=== PATIENT | female | born 1995 | race Caucasian/White ===

== ENCOUNTER → 2019-01-26 | Outpatient (CLI) | payer BC ==
[2019-01-26 17:53] LABS: BILIRUBIN,URINE NEGATIVE (NEGATIVE); CLARITY,URINE SLIGHTLY CLOUDY; COLOR,URINE YELLOW; GLUCOSE, URINE (UA) NEGATIVE (NEGATIVE); KETONES,URINE NEGATIVE (NEGATIVE); LEUKOCYTE ESTERASE ,URINE 1+ (NEGATIVE); NITRITE,URINE NEGATIVE (NEGATIVE); PH,URINE 7 (5-9); PROTEIN,URINE NEGATIVE (NEGATIVE); UROBILINOGEN,URINE NORMAL (NORMAL)
[2019-01-26 18:04] LABS: BACTERIA,URINE TRACE /HPF; WBC,URINE 0-2 /HPF
== END ==
LOC: LAB 17:33
PROVIDERS: ATTEND Obstetrics & Gynecology
DX: Z36.89 Encounter for other specified antenatal screening (principal)
CPT/HCPCS: 36415; 81000; 84144; 84702; 87088

== ENCOUNTER → 2019-05-12 | Outpatient (CLI) | payer BC ==
--- NOTE | 2019-05-12 17:10 | Diagnostic Imaging Report ---
INDICATION: . Clinical dates of 20 weeks and 0 days. TECHNIQUE: Multiple real-time grayscale images were obtained over the gravid uterus. COMPARISON: None. FINDINGS: There is a single live intrauterine gestation in cephalic presentation. The cervix measures 4 cm in length with no funneling or significant endocervical fluid seen. The placenta is posterior without evidence of previa seen. The stomach is seen. A four-chamber heart is seen. heart rate measures 139 BPM. The kidneys are seen. The bladder is seen. A three-vessel cord is seen. The cord insertion is seen. The cerebellum and posterior fossa are seen, and the cisterna magna appears normal. The ventricles are seen. The upper and lower spine is seen. The lips and nose are seen. The face is seen. Measurements are given below. The maternal adnexa are not seen. The amniotic fluid is subjectively normal. Biometrical measurements are as follows: Biparietal 4.69 cm, age 20 weeks 2 days. Head circumference 17.34 cm, age 20 weeks 0 days. Abdominal circumference 14.31 cm, age 19 weeks 5 days. Femur length 3.17 cm, age 19 weeks 6 days. Sonographic estimate age: 20 weeks 0 days. Sonographic estimated date of delivery: 09/29/2019. Estimated Weight: 312 gm (+/- 46 gm). LMP percentile: 33%. heart rate: 139 beats per minute. number: 1 of 1. IMPRESSION: 1. Single live intrauterine gestation measuring at 20 weeks and 0 days which is concordant with the clinical dates. 2. Anatomic survey as described above with no abnormality seen. Dictated by: Dictated on workstation # [id number]
== END ==
LOC: RAD 15:22
PROVIDERS: ATTEND Obstetrics & Gynecology
DX: Z34.92 Encounter for supervision of normal pregnancy, unspecified, second trimester (principal); Z3A.20 20 weeks gestation of pregnancy
CPT/HCPCS: 76805

== ENCOUNTER 2019-08-26 16:07 | Outpatient (CLI) | payer BC ==
[~2019-08-26] VITALS: Ht 157.5 cm; Wt 68.3 kg
--- NOTE | 2019-08-26 15:58 | NUR ---
CYNTHIA POLO presented to unit via ambulation, accompanied by mother, with c/o leaking fluid since 1129 today. Pt. weighed, gowned, voided, and to bed. EFHM and TOCO applied, VS taken. Pt. oriented to bed controls, call light, TV, heat, and A/C controls.
--- NOTE | 2019-08-26 16:10 | NUR ---
Nitrazine negative. pt damp in vaginal area. no active leaking fluid noted.
--- NOTE | 2019-08-26 16:11 | NUR ---
SVE: closed, thick and posterior
[2019-08-26 16:49] VITALS: BP 131/83
[2019-08-26 16:54] LABS: BILIRUBIN,URINE NEGATIVE (NEGATIVE); CLARITY,URINE CLEAR; COLOR,URINE YELLOW; GLUCOSE, URINE (UA) NEGATIVE (NEGATIVE); KETONES,URINE TRACE (NEGATIVE); LEUKOCYTE ESTERASE ,URINE TRACE (NEGATIVE); NITRITE,URINE NEGATIVE (NEGATIVE); PH,URINE 5.5 (5-9); PROTEIN,URINE NEGATIVE (NEGATIVE)
--- NOTE | 2019-08-26 16:59 | NUR ---
was called with update on pt's admission c/o's. will call back with UA results.
[2019-08-26 17:03] LABS: BACTERIA,URINE MODERATE /HPF; WBC,URINE RARE /HPF
--- NOTE | 2019-08-26 17:08 | NUR ---
monitors maryan LINDSAY reviewed. Addendum: 08/26/19 at 1914 by MARJORIE GARAY RN pt denies pain with ctx's. reports feeling occasional tightening.
--- NOTE | 2019-08-26 17:25 | NUR ---
dismissal instructions given, verbalizes understanding. labor precautions given. signature page signed, placed on chart. pt ambulated to private vehicle with mother @ side. pt stable with no sx's of distress noted.
--- NOTE | 2019-08-27 08:03 | Physician Query-Final Dx ---
JOSE BOWEN 08/27/19 0803: Clinic Account Progress/Dx Physician Query: Please give diagnosis Please include # weeks gestation Date of Service Aug 26, 2019 at 16:07 ALMAS MORA DO 08/27/19 0957: Clinic Account Progress/Dx DIAGNOSIS: Diagnosis 36 week iup vaginal discharge JOSE BOWEN Aug 27, 2019 08:03 POSALMAS MORA DO Aug 27, 2019 09:57 POS
== END 2019-08-26 17:25 | disposition home or self-care (01) ==
LOC: WSo 16:07 → LDRP 16:07 → WSo 17:25
PROVIDERS: ATTEND Obstetrics & Gynecology
DX: O26.893 Other specified pregnancy related conditions, third trimester (principal); N89.8 Other specified noninflammatory disorders of vagina; Z3A.36 36 weeks gestation of pregnancy
CPT/HCPCS: 81000; 99213

== ENCOUNTER 2019-09-22 06:00 | Inpatient (IN) | payer BC ==
[~2019-09-22] VITALS: Ht 160 cm; Wt 71.7 kg
[2019-09-22] VITALS (60 sets, daily range): BP systolic 105–164; BP diastolic 52–91
--- NOTE | 2019-09-22 06:15 | NUR ---
CYNTHIA POLO presented to unit via ambulatory from ED, accompanied by family, with c/o INDUCTION. CYNTHIA POLO weighed, gowned, voided, and to bed. EFHM and TOCO applied, VS taken. CYNTHIA POLO oriented to bed controls, call light, TV, heat, and A/C controls.
--- NOTE | 2019-09-22 07:09 | NUR ---
monitors applied. admission paperwork given. POC reviewed. and mother @ side.
[2019-09-22] MEDS ORDERED: OXYTOCIN/NORMAL SALINE 500 ML IV SCH ×2 (07:26→19:05)
[2019-09-22] MEDS ORDERED: OXYTOCIN/NORMAL SALINE 500 ML IV ONE (07:28)
[2019-09-22] MEDS ORDERED: D5 LR IV SOLUTION 1,000 ML IV ONE (07:28)
--- NOTE | 2019-09-22 07:43 | NUR ---
#18g IV to Rt.wrist x1 attempt by this RN. admission labs collected prior to IVF's infusing. pt tolerated well. D5L$ @ 125cc/hr infusing via IV pump.
[2019-09-22] MEDS: D5 LR IV SOLUTION 1,000 ML IV SCH ×2 (07:49→15:40)
[2019-09-22 08:11] LABS: BASOPHILS # (AUTO) 0.1 10^3/uL (0.0-0.1); BASOPHILS % (AUTO) 1 % (0-10); EOSINOPHILS # (AUTO) 0.5 10^3/uL (0.0-0.3); EOSINOPHILS % (AUTO) 4 % (0-10); HEMATOCRIT 37 % (35-52); HEMOGLOBIN 12.8 G/DL (11.5-16.0); LYMPHOCYTES # (AUTO) 1.6 X 10^3 (1.0-4.0); LYMPHOCYTES % (AUTO) 14 % (12-44); MEAN CORPUSCULAR HEMOGLOBIN 29 PG (25-34); MEAN CORPUSCULAR HGB CONC 34 G/DL (32-36); MEAN CORPUSCULAR VOLUME 85 FL (80-99); MONOCYTES % (AUTO) 8 % (0-12); NEUTROPHILS # (AUTO) 8.7 X 10^3 (1.8-7.8); NEUTROPHILS % (AUTO) 73 % (42-75); PLATELET COUNT 184 10^3/uL (130-400); RED CELL DISTRIBUTION WIDTH 13.2 % (10.0-14.5); WHITE BLOOD COUNT 11.8 10^3/uL (4.3-11.0)
--- NOTE | 2019-09-22 08:13 | History & Physical-OB ---
OB - Chief Complaint & HPI Date/Time Date of Admission: Date of Admission: Sep 22, 2019 at 06:06 Date seen by a Provider: Sep 22, 2019 Time Seen by a Provider: 08:10 Chief Complaint/History OB-Reason for Admission/Chief: Induction of Labor Hx : 1 Hx Para: 0 Expected Date of Delivery: Sep 22, 2019 Gestational Age in Weeks: 1 Gestational Age in Days: 0 Admission Nurse Assessment Rev: Yes History of Labs B pos Antibody neg RI RPR NR HBsAg NR HIV NR GC neg GBS neg Allergies and Home Medications Allergies Coded Allergies: No Known Drug Allergies (Unverified , 09/22/19) Home Medications No Active Prescriptions or Reported Meds Patient Home Medication List Home Medication List Reviewed: Yes OB - History Hx of Present Care: Yes Ultrasounds: Normal mid trimester US Obstetrical Complications: None Medical Complications: None Patient Past Medical History n/a Immunizations Date of Influenza Vaccine: Jun 26, 2019 OB - Admission Exam Physical Exam HEENT: NCAT Heart: Rhythm Normal Lungs: Clear Abdomen: Gravid Extremities: Normal Reflexes: Normal Cervical Dilatation: 3cm Effacement: 75% Station: -1 Membranes: Intact Heart Rate: 130's Accelerations: Accelerations Present Decelerations: No Decelerations Short Term Variability: Present Prison Variability: Average (6-25) Contractions on Admission: < 5 Minutes Apart Schuler Scoring Tool (Modified) Dilation (cm): 3-4cm (2) Effacement (%): 51-79% (2) Descent/Station: -1,0 (2) Cervix Consistency: Soft (2) Cervix Position: Anterior (2) Schuler Score: 9 Labs Laboratory Tests Test 09/22/19 07:30 09/22/19 07:43 Range/Units OB - Assessment/Plan/Diagnosis Assessment Assessment: induction of labor Admission Dx 24 yo @ 39 weeks Elective induction of labor GBS neg Admission Status: Inpatient Order (span 2 midnights) Reason for Inpatient Admission: Term induction of labor Plan Plan: Induction Induction Method: per Pitocin Protocol ALMAS MORA DO Sep 22, 2019 08:13
[2019-09-22 08:14] LABS: BILIRUBIN,URINE NEGATIVE (NEGATIVE); CLARITY,URINE CLEAR; COLOR,URINE YELLOW; GLUCOSE, URINE (UA) NEGATIVE (NEGATIVE); KETONES,URINE NEGATIVE (NEGATIVE); LEUKOCYTE ESTERASE ,URINE 1+ (NEGATIVE); NITRITE,URINE NEGATIVE (NEGATIVE); PROTEIN,URINE NEGATIVE (NEGATIVE)
[2019-09-22 08:27] LABS: BACTERIA,URINE MODERATE /HPF
[2019-09-22] MEDS ORDERED: SUFENTA 0.6MCG/ML BUPIVA 0.125 100 ML ONE (11:11)
[2019-09-22] MEDS ORDERED: LACTATED RINGERS 1,000 ML IV ONE (11:11)
[2019-09-22] MEDS ORDERED: fentaNYL INJECTION 100 MCG/2 ML AMP ONE (11:40)
[2019-09-22] MEDS ORDERED: LACTATED RINGERS 1,000 ML IV SCH (12:40)
[2019-09-22] MEDS ORDERED: EPIDURAL (SUFENTA 0.6MCG/ML BUPIVA 0.125%) 100 ML BAG EPI PRN (12:45)
[2019-09-22] MEDS ORDERED: diphenhydrAMINE 50 MG/ML INJ (BENADRYL) IV PRN (12:45)
[2019-09-22] MEDS ORDERED: METOCLOPRAMIDE INJ 10 MG/2 ML (REGLAN) IV PRN (12:45)
[2019-09-22] MEDS ORDERED: NALOXONE 0.4 MG/ML 1 ML (NARCAN) VIAL IV PRN ×2 (12:45)
[2019-09-22] MEDS ORDERED: ONDANSETRON 4 MG/2 ML (SDV) Z0FRAN IV PRN (12:45)
[2019-09-22] MEDS ORDERED: CATHETER FLUSH 10 ML SYR IV SCH ×2 (14:00→22:00)
[2019-09-22] MEDS ORDERED: LIDOCAINE/EPI 2% 1:200,00 (XYLOCAINE) 10 ML VIAL ONE (18:10)
[2019-09-22] MEDS ORDERED: METHYLERGONOVINE 0.2 MG/ML (METHERGINE) AMP ONE (18:54)
--- NOTE | 2019-09-22 19:13 | OB Labor & Delivery Record ---
L&D History Date of Service Date of Service: Sep 22, 2019 History Expected Date of Delivery: Sep 22, 2019 Gestational Age in Weeks: 1 Hx : 1 Hx Para: 0 Complications Events: Routine care Operative Indications (Cesarea: N/A-Vaginal Delivery Intrapartal Events: None L&D Stage1 Stage One Onset of Labor - Date: Sep 22, 2019 Monitors and Tracing Monitor Mode: External Heart Rate: 125 Monitor Accelerations: Uniform Station: 0 Airline Managerial Supervisor Variability: Average (6-10) Short Term Variability: Present Presentation: Vertex Vital Signs VS - Last 72 Hours, by Label 09/22/19 09/22/19 09/22/19 09/22/19 07:12 07:43 07:50 08:15 Temp 36.3 36.3 Pulse 79 79 86 93 Resp 18 18 18 18 B/P (MAP) 114/74 (87) 117/73 (88) 142/86 (104) Pulse Ox 99 99 O2 Delivery Room Air Room Air Room Air Room Air 09/22/19 09/22/19 09/22/19 09/22/19 08:30 08:45 09:00 09:15 Pulse 81 96 92 111 Resp 18 18 18 18 B/P (MAP) 123/77 (92) 113/64 (80) 109/72 (84) 121/85 (97) O2 Delivery Room Air Room Air Room Air Room Air 09/22/19 09/22/19 09/22/19 09/22/19 09:30 09:45 10:00 10:15 Pulse 103 104 105 103 Resp 18 18 18 18 B/P (MAP) 106/70 (82) 113/71 (85) 111/71 (84) 119/75 (90) O2 Delivery Room Air Room Air Room Air Room Air 09/22/19 09/22/19 09/22/19 09/22/19 10:30 10:45 11:00 11:15 Temp 36.8 Pulse 99 104 93 110 Resp 18 18 18 18 B/P (MAP) 130/62 (84) 123/78 (93) 122/71 (88) 125/73 (90) O2 Delivery Room Air Room Air Room Air Room Air 09/22/19 09/22/19 09/22/19 09/22/19 11:30 11:45 11:50 11:55 Pulse 93 102 125 122 Resp 18 18 18 18 B/P (MAP) 121/76 (91) 124/70 (88) 141/88 (105) 131/88 (102) Pulse Ox 100 99 99 O2 Delivery Room Air Room Air Room Air Room Air 09/22/19 09/22/19 09/22/19 09/22/19 12:00 12:05 12:10 12:15 Pulse 107 97 90 96 Resp 18 18 18 18 B/P (MAP) 122/83 (96) 121/75 (90) 118/69 (85) 105/67 (80) Pulse Ox 100 100 100 99 O2 Delivery Room Air Room Air Room Air Room Air 09/22/19 09/22/19 09/22/19 09/22/19 12:20 12:25 12:30 12:45 Pulse 82 96 104 98 Resp 18 18 18 18 B/P (MAP) 109/63 (78) 111/60 (77) 119/80 (93) 121/66 (84) Pulse Ox 97 98 100 100 O2 Delivery Room Air Room Air Room Air Room Air 09/22/19 09/22/19 09/22/19 09/22/19 13:00 13:15 13:30 13:45 Temp 36.2 Pulse 109 104 87 90 Resp 18 18 18 18 B/P (MAP) 117/63 (81) 106/61 (76) 107/65 (79) 106/61 (76) Pulse Ox 100 91 99 98 O2 Delivery Room Air Room Air Room Air Room Air 09/22/19 09/22/19 09/22/19 09/22/19 14:00 14:15 14:30 14:45 Pulse 104 103 110 104 Resp 18 18 18 18 B/P (MAP) 114/77 (89) 111/80 (90) 114/76 (89) Pulse Ox 99 100 99 99 O2 Delivery Room Air Room Air Room Air Room Air 09/22/19 09/22/19 09/22/19 15:00 15:15 15:30 Pulse 92 96 92 Resp 18 18 18 B/P (MAP) 118/69 (85) 117/67 (84) 119/65 (83) Pulse Ox 99 100 100 O2 Delivery Room Air Room Air Room Air Rupture of Membranes Spontaneous Ruture of Membrane: No Amniotic Membrane Rupture Time: 814 Vaginal Bleeding Description: Normal Show Induction/Anesthesia Epidural Cath Placement - Time: 1200 Progress/Notes Patient augmented with pitocin to max dose 12 mu/min, progressed to complete and +2 with epidural for pain control L&D Stage2 Stage Two Stage II Date: Sep 22, 2019 Monitors and Tracing Monitor Mode: External Heart Rate: 135 Monitor Accelerations: Uniform Monitor Decelerations: Variable Airline Managerial Supervisor Variability: Average (6-10) Short Term Variability: Present Position: Right Occiput Anterior Presentation: Vertex Signs of Distress by FHT Signs of Distress nuchal cord x 2 Cord Descript/Complications Cord Vessel Description: 3 Vessels Delivery Type Infant Delivery Method: Spontaneous Vaginal Episiotomy/Perineal Laceration Laceraction(s)/Extensions: Yes Episiotomy Description: Right Mediolateral Location Modifier: Right Sutures Used: Vicryl Degree (describe repair) RML repaired using 3-0 and 2-0 vicryl suture in usual fashion Condition of Delivery 1 minute Comment: 8 5 minute Comment: 9 Notes Live male infant weight 7lbs 7 oz Condition of Condition of Infant: Living Exam: No Observed Abnormalities Resuscitation Resuscitation: N/A - Spontaneous Resp L&D Stage3 Stage Three Stage III Date: Sep 22, 2019 Pictocin Pitocin Administration mu/min: 12 Pitocin ml/hr: 12 Pitocin Administration Comment: 30 mu wide open at delivery of placenta Placenta Delivery Placenta Delivery: Spontaneous Delivery Summary Summary Estimated blood loss (mL): 400 Attending at delivery: Almas Mora DO Condition of Delivery Examined: Cervix Examined, Uterus Explored Post Hemorrhage: No Condition of Mother stable Condition of Infant (s) stable ALMAS MORA DO Sep 22, 2019 7:13 pm
[2019-09-22] MEDS ORDERED: MEASLES,MUMPS,RUBELLA 1 EA INJ SQ ONE (19:15)
[2019-09-22] MEDS ORDERED: TETANUS,DIPTH,PERTUSS P/F (BOOSTRIX) 0.5 ML VIAL IM ONE (19:15)
--- NOTE | 2019-09-22 19:15 | NUR ---
report given to KODY Gomes.
[2019-09-22] MEDS ORDERED: METHYLERGONOVINE 0.2 MG/ML (METHERGINE) AMP IM ONE (20:00)
[2019-09-22] MEDS: IBUPROFEN 600 MG (MOTRIN) TAB PO SCH (21:57)
--- NOTE | 2019-09-22 22:00 | NUR ---
Pt to bedpan r/t feeling urge to void and being unable to ambulate. 600ML clear yellow urine noted in hat mixed with blood. pericare pads changed per rn.
--- NOTE | 2019-09-22 23:40 | NUR ---
Pt up to bathroom standby, voided, pericare pads changed. pt to wc and tx to pp room 310. Oriented to call system and surroundings. No ss distress, ice diaper supplied, pt denies needs.
[2019-09-23 00:45] VITALS: BP 108/59
[2019-09-23 03:38] VITALS: BP 103/59
[2019-09-23] MEDS: WITCH HAZEL(TUCKS) 40 EA JAR TOP PRN ×2 (03:38→08:40)
[2019-09-23] MEDS: DIBUCAINE (NUPERCAINAL) 1% OINT 30 GM TOP PRN ×2 (03:38→08:40)
[2019-09-23] MEDS: IBUPROFEN 600 MG (MOTRIN) TAB PO SCH ×4 (03:38→21:24)
[2019-09-23] MEDS: HYDROcodone/APAP 5 MG/325 MG (LORTAB) TAB PO PRN ×3 (04:09→18:55)
[2019-09-23 05:47] LABS: BASOPHILS % (AUTO) 0 % (0-10); EOSINOPHILS # (AUTO) 0.3 10^3/uL (0.0-0.3); EOSINOPHILS % (AUTO) 2 % (0-10); HEMATOCRIT 32 % (35-52); HEMOGLOBIN 11.3 G/DL (11.5-16.0); LYMPHOCYTES # (AUTO) 1.7 X 10^3 (1.0-4.0); LYMPHOCYTES % (AUTO) 12 % (12-44); MEAN CORPUSCULAR HEMOGLOBIN 30 PG (25-34); MEAN CORPUSCULAR HGB CONC 35 G/DL (32-36); MEAN CORPUSCULAR VOLUME 85 FL (80-99); MEAN PLATELET VOLUME 10.9 FL (7.4-10.4); MONOCYTES # (AUTO) 1.5 X 10^3 (0.0-1.0); MONOCYTES % (AUTO) 11 % (0-12); NEUTROPHILS # (AUTO) 10.3 X 10^3 (1.8-7.8); NEUTROPHILS % (AUTO) 75 % (42-75); PLATELET COUNT 158 10^3/uL (130-400); RED CELL DISTRIBUTION WIDTH 13.2 % (10.0-14.5); WHITE BLOOD COUNT 13.7 10^3/uL (4.3-11.0)
[2019-09-23] MEDS ORDERED: FERR325T18 PO (07:34)
[2019-09-23] MEDS ORDERED: BENZ78AE2 TP (07:34)
[2019-09-23] MEDS ORDERED: IBUP-844 PO (07:34)
[2019-09-23] MEDS ORDERED: DIBU30OI TOP (07:34)
[2019-09-23] MEDS ORDERED: ACHD5005 PO (07:34)
[2019-09-23] MEDS ORDERED: DOCU100C37 PO (07:34)
--- NOTE | 2019-09-23 07:37 | Discharge Inst-Women's Service ---
Discharge Inst-Women's Serv Depart Medication/Instructions New, Converted or Re-Newed RX: RX on Chart Final Diagnosis PPD 2 NVD Problems Reviewed?: Yes Consults/Follow Up Additional Follow Up: Yes Orders/Referrals Dr. Mora in 6 weeks Activity Activity: Activity as Tolerated Driving Instructions: No Driving for 1 Week NO SMOKING: NO SMOKING Nothing Inside Vagina: No Douching, No Buckhorn, No Tampons Diet Discharge Diet: No Restrictions Symptoms to Report to : Bleeding Excessive, Pain Increased, Fever Over 101 Degrees F, Vaginal Bleeding Increase, Questions/Concerns For Any Problems or Questions: Contact Your Physician ALMAS MORA DO Sep 23, 2019 07:37
--- NOTE | 2019-09-23 07:39 | Postpartum Progress Note ---
Note Note Day # 1 Subjective: Patient is without complaints. Ambulating, voiding. Tolerating a regular diet without nausea or vomiting. Normal lochia. Pain is well controlled with oral pain medications. Objective: Physical Exam: General - Alert and oriented, no apparent distress Abdomen - Soft, appropriately tender to palpation, non-distended, fundus firm at umbilicus Extremities - no edema, negative Stephen's bilaterally Assessment: PPD 1 NVD Acute blood loss anemia Plan: Routine care. Encourage breast feeding. Encourage ambulation. Ferrous sulfate supplementation. Plan for discharge tomorrow Vitals - Labs Vital Signs - I&O Vital Signs Date Time Temp Pulse Resp B/P (MAP) Pulse Ox O2 Delivery O2 Flow Rate FiO2 09/23/19 03:38 37.0 92 18 103/59 (74) 97 Room Air 09/23/19 00:45 36.7 92 18 108/59 (75) 92 Room Air 09/22/19 21:20 106 18 107/77 (87) Room Air 09/22/19 20:45 110 18 118/65 (82) Room Air 09/22/19 20:30 118 18 137/73 (94) Room Air 09/22/19 20:15 111 18 122/67 (85) Room Air 09/22/19 20:00 37.0 102 18 115/88 (97) Room Air 09/22/19 19:45 36.9 107 18 116/65 (82) Room Air 09/22/19 19:30 36.8 110 18 107/68 (81) Room Air 09/22/19 19:15 37.0 108 18 126/70 (88) Room Air 09/22/19 19:00 105 20 117/59 (78) Room Air 09/22/19 18:45 116 20 115/59 (77) Room Air 09/22/19 18:30 153 18 126/66 (86) Room Air 09/22/19 18:27 36.9 09/22/19 18:15 130 18 164/64 (97) Room Air 09/22/19 18:00 166 18 121/52 (75) Room Air 09/22/19 17:45 113 18 136/91 (106) Room Air 09/22/19 17:30 96 18 125/79 (94) 100 Room Air 09/22/19 17:15 96 18 125/79 (94) 100 Room Air 09/22/19 17:00 112 18 121/81 (94) 98 Room Air 09/22/19 16:45 37.1 112 18 120/74 (89) 98 Room Air 09/22/19 16:30 100 18 124/74 (91) 99 Room Air 09/22/19 16:15 100 18 121/75 (90) 100 Room Air 09/22/19 16:00 100 18 118/70 (86) 98 Room Air 09/22/19 15:45 37.1 97 18 133/78 (96) 100 Room Air 09/22/19 15:30 92 18 119/65 (83) 100 Room Air 09/22/19 15:15 96 18 117/67 (84) 100 Room Air 09/22/19 15:00 92 18 118/69 (85) 99 Room Air 09/22/19 14:45 104 18 99 Room Air 09/22/19 14:30 110 18 114/76 (89) 99 Room Air 09/22/19 14:15 103 18 111/80 (90) 100 Room Air 09/22/19 14:00 104 18 114/77 (89) 99 Room Air 09/22/19 13:45 90 18 106/61 (76) 98 Room Air 09/22/19 13:30 87 18 107/65 (79) 99 Room Air 09/22/19 13:15 104 18 106/61 (76) 91 Room Air 09/22/19 13:00 36.2 109 18 117/63 (81) 100 Room Air 09/22/19 12:45 98 18 121/66 (84) 100 Room Air 09/22/19 12:30 104 18 119/80 (93) 100 Room Air 09/22/19 12:25 96 18 111/60 (77) 98 Room Air 09/22/19 12:20 82 18 109/63 (78) 97 Room Air 09/22/19 12:15 96 18 105/67 (80) 99 Room Air 09/22/19 12:10 90 18 118/69 (85) 100 Room Air 09/22/19 12:05 97 18 121/75 (90) 100 Room Air 09/22/19 12:00 107 18 122/83 (96) 100 Room Air 09/22/19 11:55 122 18 131/88 (102) 99 Room Air 09/22/19 11:50 125 18 141/88 (105) 99 Room Air 09/22/19 11:45 102 18 124/70 (88) 100 Room Air 09/22/19 11:30 93 18 121/76 (91) Room Air 09/22/19 11:15 110 18 125/73 (90) Room Air 09/22/19 11:00 36.8 93 18 122/71 (88) Room Air 09/22/19 10:45 104 18 123/78 (93) Room Air 09/22/19 10:30 99 18 130/62 (84) Room Air 09/22/19 10:15 103 18 119/75 (90) Room Air 09/22/19 10:00 105 18 111/71 (84) Room Air 09/22/19 09:45 104 18 113/71 (85) Room Air 09/22/19 09:30 103 18 106/70 (82) Room Air 09/22/19 09:15 111 18 121/85 (97) Room Air 09/22/19 09:00 92 18 109/72 (84) Room Air 09/22/19 08:45 96 18 113/64 (80) Room Air 09/22/19 08:30 81 18 123/77 (92) Room Air 09/22/19 08:15 93 18 142/86 (104) Room Air 09/22/19 07:50 86 18 117/73 (88) Room Air 09/22/19 07:43 36.3 79 18 99 Room Air I & O 09/23/19 07:00 Intake Total 2000 ml Balance 2000 ml Labs Laboratory Tests 09/22/19 07:43: White Blood Count 11.8H, Red Blood Count 4.38, Hemoglobin 12.8, Hematocrit 37, Mean Corpuscular Volume 85, Mean Corpuscular Hemoglobin 29, Mean Corpuscular Hemoglobin Concent 34, Red Cell Distribution Width 13.2, Platelet Count 184, Mean Platelet Volume 11.0H, Neutrophils (%) (Auto) 73, Lymphocytes (%) (Auto) 14, Monocytes (%) (Auto) 8, Eosinophils (%) (Auto) 4, Basophils (%) (Auto) 1, Neutrophils # (Auto) 8.7H, Lymphocytes # (Auto) 1.6, Monocytes # (Auto) 1.0, Eosinophils # (Auto) 0.5H, Basophils # (Auto) 0.1 09/23/19 05:15: White Blood Count 13.7H, Red Blood Count 3.78L, Hemoglobin 11.3L, Hematocrit 32L , Mean Corpuscular Volume 85, Mean Corpuscular Hemoglobin 30, Mean Corpuscular Hemoglobin Concent 35, Red Cell Distribution Width 13.2, Platelet Count 158, Mean Platelet Volume 10.9H, Neutrophils (%) (Auto) 75, Lymphocytes (%) (Auto) 12, Monocytes (%) (Auto) 11, Eosinophils (%) (Auto) 2, Basophils (%) (Auto) 0, Neutrophils # (Auto) 10.3H, Lymphocytes # (Auto) 1.7, Monocytes # (Auto) 1.5H, Eosinophils # (Auto) 0.3, Basophils # (Auto) 0.0 ALMAS MORA DO Sep 23, 2019 07:39
[2019-09-23] MEDS: FERROUS SULF 325 MG (IRON) TAB PO SCH (08:38)
[2019-09-23] MEDS: DOCUSATE SODIUM 100 MG (COLACE) CAP PO SCH ×2 (08:39→21:24)
[2019-09-23] MEDS: PRENATAL VITAMIN 1 EA TAB PO SCH (08:39)
[2019-09-23] MEDS: BENZOCAINE/MENTHOL (DERMOPLAST) 60 ML CAN TP PRN (08:40)
[2019-09-23 08:44] VITALS: BP 115/74
--- NOTE | 2019-09-23 08:44 | NUR ---
initial shift assessment completed, see interventions for further.
--- NOTE | 2019-09-23 12:37 | Anesthesia-Regional Post-Op ---
Regional Patient Condition Mental Status: Alert, Oriented x3 Circulation: Same as Pre-Op Headache: Absent Sensation: Full Recovery Motor Block: Absent Post Op Complications Complications None Follow Up Care/Instructions Patient Instructions None needed. Anesthesia/Patient Condition Patient is doing well, no complaints, stable vital signs, no apparent adverse anesthesia problems. No complications reported per nursing. JACQUELINE JEAN BAPTISTE CRNA Sep 23, 2019 12:37
[2019-09-23 15:30] VITALS: BP 111/59
--- NOTE | 2019-09-23 19:14 | NUR ---
Report given to KODY Gomes.
[2019-09-23 21:22] VITALS: BP 112/59
[2019-09-24] MEDS: IBUPROFEN 600 MG (MOTRIN) TAB PO SCH ×2 (03:15→08:57)
[2019-09-24 03:35] VITALS: BP 117/78
[2019-09-24 08:54] VITALS: BP 112/75
--- NOTE | 2019-09-24 08:54 | NUR ---
AM shift assessment completed and vital signs obtained, see interventions. Plan of care reviewed with patient. Patient verbalizes understanding and questions answered. Scheduled Motrin, PNV, Colace, Iron PO given. Ice pack provided per patient's request.
[2019-09-24] MEDS: BENZOCAINE/MENTHOL (DERMOPLAST) 60 ML CAN TP PRN (08:55)
[2019-09-24] MEDS: DIBUCAINE (NUPERCAINAL) 1% OINT 30 GM TOP PRN (08:56)
[2019-09-24] MEDS: WITCH HAZEL(TUCKS) 40 EA JAR TOP PRN (08:56)
[2019-09-24] MEDS: PRENATAL VITAMIN 1 EA TAB PO SCH (08:57)
[2019-09-24] MEDS: FERROUS SULF 325 MG (IRON) TAB PO SCH (08:57)
[2019-09-24] MEDS: DOCUSATE SODIUM 100 MG (COLACE) CAP PO SCH (08:57)
--- NOTE | 2019-09-24 09:13 | Postpartum Progress Note ---
Note Note Day # 2 Subjective: Patient is without complaints. Ambulating, voiding. Tolerating a regular diet without nausea or vomiting. Normal lochia. Pain is well controlled with oral pain medications. Objective: Physical Exam: General - Alert and oriented, no apparent distress Abdomen - Soft, appropriately tender to palpation, non-distended, fundus firm at umbilicus Extremities - no edema, negative Stephen's bilaterally Assessment: PPD 1 NVD Acute blood loss anemia Plan: Routine care. Encourage breast feeding. Encourage ambulation. Ferrous sulfate supplementation. Plan for discharge today Vitals - Labs Vital Signs - I&O Vital Signs Date Time Temp Pulse Resp B/P (MAP) Pulse Ox O2 Delivery O2 Flow Rate FiO2 09/24/19 03:35 36.9 107 18 117/78 (91) 97 Room Air 09/23/19 21:22 36.9 96 18 112/59 (76) 98 Room Air 09/23/19 15:30 36.5 90 18 111/59 (76) 98 Room Air Labs Microbiology 09/22/19 Urine Culture - Final, Complete 3 or more isolates ALMAS MORA DO Sep 24, 2019 09:13
--- NOTE | 2019-09-24 09:15 | NUR ---
Dr. [place] here to see patient.
--- NOTE | 2019-09-24 13:16 | NUR ---
Discharge instructions and medications reviewed with patient both written and verbally. Patient verbalizes understanding and questions answered.
--- NOTE | 2019-09-24 14:25 | NUR ---
Patient discharged at this time via wheelchair and accompanied down to awaiting private vehicle by Hanny Emanuel RN. No signs or symptoms of distress noted.
== END 2019-09-24 14:25 | disposition home or self-care (01) | DRG 806 ==
LOC: LDRP 06:06
PROVIDERS: ADMIT Obstetrics & Gynecology; ATTEND Obstetrics & Gynecology
PROC: 10E0XZZ Delivery of Products of Conception, External Approach (ICD-10-PCS; principal; 2019-09-22)
PROC: 0W8NXZZ Division of Female Perineum, External Approach (ICD-10-PCS; 2019-09-22)
DX: O76 Abnormality in fetal heart rate and rhythm complicating labor and delivery (principal); Z37.0 Single live birth; D62 Acute posthemorrhagic anemia; O90.81 Anemia of the puerperium; Z3A.39 39 weeks gestation of pregnancy; Z23 Encounter for immunization
CPT/HCPCS: 36415; 81000; 85025; 86850; 86900; 86901; 87088

== ENCOUNTER 2020-08-20 16:20 | Emergency (ER) | payer BC ==
[~2020-08-20] VITALS: Ht 158 cm; Wt 55.9 kg
[~2020-08-20 16:20] MED LIST: ACHD5005 PO; BENZ78AE5 TP; DIBU30OI TOP; DOCU100C37 PO; FERR325T18 PO; IBUP-844 PO
[2020-08-20 16:42] LABS: BILIRUBIN,URINE NEGATIVE (NEGATIVE); CLARITY,URINE CLEAR; COLOR,URINE YELLOW; GLUCOSE, URINE (UA) NEGATIVE (NEGATIVE); KETONES,URINE NEGATIVE (NEGATIVE); LEUKOCYTE ESTERASE ,URINE NEGATIVE (NEGATIVE); NITRITE,URINE NEGATIVE (NEGATIVE); PH,URINE 6.5 (5-9); PROTEIN,URINE NEGATIVE (NEGATIVE)
[2020-08-20 16:52] LABS: BACTERIA,URINE NEGATIVE /HPF; SQUAMOUS EPITHELIAL CELL,UR RARE /HPF; WBC,URINE 0-2 /HPF
[2020-08-20] MEDS ORDERED: ACETAMINOPHEN 325 MG TABLET PO ONE (17:15)
--- NOTE | 2020-08-20 17:39 | ED GU-Female ---
General Chief Complaint: OB < 20 WEEKS Stated Complaint: 10 WKS PREG/ABD PAIN Nursing Triage Note: PT TO ED W/ C/O GENERALIZED ABD PAIN ONSET 1230 TODAY AFTER WAKING FROM A NAP. 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 She is approximately 9-1/2 to 10 weeks gestation denies any vaginal discharge, vomiting, diaphoresis or headache. She is taking Progesterone cream, intravaginally. She has been having intermittent abdominal pain that she describes as cramping. She has not had an OB ultrasound yet, she is scheduled for one with her OB on 08/24/2020. She had blood work done 4 weeks ago. She rates her pain at a 2/10 when it is present however it is not present continuously. She had some discomfort when she bent over to cook pickled meat her [id number]. She is taking a vitamin daily, she is not having problems with constipation. She reports a bowel movement yesterday. She was treated for a UTI 2 weeks ago. She has not taken any medication for pain. Lab from 09/22/19 patient B+ Timing/Duration: this morning Severity/Quality: mild Radiation: none Activities at Onset: none, sexual activity (this am) Modifying Factors: Improves With Resting Associated Symptoms: denies symptoms, nausea/vomiting (No vomiting); No urinary frequency Allergies and Home Medications Allergies Coded Allergies: No Known Drug Allergies (Unverified , 09/22/19) Home Medications Benzocaine/Menthol 78 Gm Aerosol, 0 ML TP UD PRN for PAIN- SEE INSTRUCTIONS Prescribed by: ALMAS MONTANA on 09/23/19 0734 Dibucaine 30 Gm Oint, 0 GM TOP UD PRN for PAIN- SEE INSTRUCTIONS Prescribed by: ALMAS MONTANA on 09/23/19 0734 Docusate Sodium 100 Mg Capsule, 100 MG PO BID PRN for CONSTIPATION-1ST LINE Prescribed by: ALMAS MONTANA on 09/23/19 0734 Ferrous Sulfate 325 Mg Tablet, 325 MG PO DAILY@0800 Prescribed by: ALMAS MONTANA on 09/23/19 0734 Hydrocodone Bit/Acetaminophen 1 Tab Tab, 1 TAB PO Q4H PRN for PAIN-MODERATE (5- 7) Prescribed by: ALMAS MONTANA on 09/23/19733 Ibuprofen 600 Mg Tablet, 600 MG PO Q6H Prescribed by: ALMAS MONTANA on 09/23/19733 Patient Home Medication List Home Medication List Reviewed: Yes Review of Systems Review of Systems Constitutional: no symptoms reported, see HPI Gastrointestinal: see HPI, abdominal pain; No constipation, No diarrhea, No loss of appetite; nausea; No vomiting : Yes Expected Date of Delivery: Mar 21, 2021 LMP: Jun 14, 2020 All Other Systemes Reviewed Negative Unless Noted: Yes Past Tpcnwwl-Ehwqhy-Ikxwej Hx Past Med/Social Hx: Reviewed Nursing Past Med/Soc Hx Patient Social History Alcohol Use: Denies Use Recreational Drug Use: No Smoking Status: Never a Smoker 2nd Hand Smoke Exposure: No Recent Foreign Travel: No Contact w/Someone Who Travel: No Recent Infectious Disease Expo: No Recent Hopitalizations: No Physical Abuse: No Sexual Abuse: No Mistreated: No Fear: No Immunizations Up To Date Date of Influenza Vaccine: Jul 23, 2019 Seasonal Allergies Seasonal Allergies: No Past Medical History Surgeries: No Respiratory: No Cardiac: No Neurological: No Hx : 2 Hx Para: 1 Genitourinary: No Gastrointestinal: No Endocrine: No HEENT: No Cancer: No Psychosocial: No Integumentary: No Blood Disorders: No Family Medical History FH: breast cancer (GRANDMOTHER) FH: hyperlipidemia (FATHER) Hypertension (FATHER) Physical Exam Vital Signs Vital Signs - First Documented 08/20/20 16:29 Temp 36.7 Pulse 93 Resp 18 B/P (MAP) 130/79 (96) Pulse Ox 100 O2 Delivery Room Air Capillary Refill : Less Than 3 Seconds Height, Weight, BMI Height: '" Weight: lbs. oz. kg; 22.00 BMI Method: General Appearance: WD/WN, no apparent distress Neck: non-tender, full range of motion, supple, normal inspection Cardiovascular: normal peripheral pulses, regular rate, rhythm Respiratory: chest non-tender, lungs clear, normal breath sounds Gastrointestinal: normal bowel sounds, soft; No guarding, No rebound, No tenderness; other (No pain Cyr sign. Trace discomfort, generalized, with deep palpation. ) Extremities: normal range of motion, non-tender, normal inspection Neurologic/Psychiatric: no motor/sensory deficits, alert, normal mood/affect, oriented x 3 Skin: normal color, warm/dry FHT 130-150 with doppler Progress/Results/Core Measures Suspected Sepsis Recent Fever Within 48 Hours: No Infection Criteria Present: None New/Unexplained Altered Menta: No Sepsis Screen: No Definite Risk SIRS Temperature: Pulse: 93 Respiratory Rate: 18 Blood Pressure 130 /79 Mean: 96 Results/Orders Lab Results Laboratory Tests Test 08/20/20 16:33 Range/Units Urine Color YELLOW Urine Clarity CLEAR Urine pH 6.5 5-9 Urine Specific Mobile <=1.005 1.016-1.022 Urine Protein NEGATIVE NEGATIVE Urine Glucose (UA) NEGATIVE NEGATIVE Urine Ketones NEGATIVE NEGATIVE Urine Nitrite NEGATIVE NEGATIVE Urine Bilirubin NEGATIVE NEGATIVE Urine Urobilinogen 0.2 < = 1.0 MG/DL Urine Leukocyte Esterase NEGATIVE NEGATIVE Urine RBC (Auto) NEGATIVE NEGATIVE Urine RBC NONE /HPF Urine WBC 0-2 /HPF Urine Squamous Epithelial Cells RARE /HPF Urine Crystals NONE /LPF Urine Bacteria NEGATIVE /HPF Urine Casts NONE /LPF Urine Mucus NEGATIVE /LPF Urine Culture Indicated NO My Orders Orders - DIANE MCKEON Urine Bedside (08/20/20 16:24) Ua Culture If Indicated (08/20/20 16:24) Acetaminophen Tablet/Caplet (Tylenol T (08/20/20 17:15) Medications Given in ED Current Medications Medications Dose Ordered Sig/Iliana Route Start Time Stop Time Status Last Admin Dose Admin Acetaminophen 650 mg ONCE ONCE PO 08/20/20 17:15 08/20/20 17:16 DC 08/20/20 17:20 650 MG Vital Signs/I&O 08/20/20 16:29 Temp 36.7 Pulse 93 Resp 18 B/P (MAP) 130/79 (96) Pulse Ox 100 O2 Delivery Room Air Capillary Refill : Less Than 3 Seconds Blood Pressure Mean: 96 Progress Note : Time: 16:30 Progress Note Patient seen and evaluated, Explained that we do not have ultrasound available through radiology however I will discuss the patient's condition with the OB doctor manager transportation. Explained that it would be unlikely that she is experiencing an ectopic , but an ultrasound would be the only way to confirm that. Will try Tylenol 650 mg orally. 1730 Spoke to patient, pain is 4/10 now. Concerned about discharging to home, with continued pain. Spoke to Dr. Bernal, did not recommend urgent Transvaginal US. [address] De La Cruz, intra-uterine noted, with HR 160-180. Discussed with patient, if pain continues or worsens, she is to return to ED or call Dr. Montana's office. Recommended vaginal rest, until follow up. Discharge instructions and return precautions reviewed with the patient. All questions answered. Departure Impression Primary Impression: First trimester Additional Impression: Abdominal pain Qualified Codes: R10.84 - Generalized abdominal pain Disposition: HOME, SELF-CARE Condition: Improved (ERASED) Departure-Patient Inst. Decision time for Depature: 17:40 Referrals: ALMAS MONTANA DO (PCP/Family) Primary Care Physician Patient Instructions: Stomach Pain in Early , Threatened Miscarriage (DC) Add. Discharge Instructions: Monitor your pain, if it becomes more significant or intolerable, vaginal bleeding, persistent nausea with vomiting or unable to eat: return to Emergency Dept. Continue to use Tylenol 650 mg every 6-8 hours for pain. Continue your Vitamin. Vaginal Rest, until follow up. Call your OB doctor, first thing tomorrow morning, if your symptoms do not improve or worsen. Return to the Emergency Dept for new/urgent health care problems. All discharge instructions reviewed with patient and/or family. Voiced understanding. Copy Copies To 1: ALMAS MONTANA AMY ARNP Aug 20, 2020 17:39
[2020-08-20 18:32] VITALS: BP 114/71
--- NOTE | 2020-08-20 18:32 | NUR ---
PT DISCHARGED TO HOME W/ INSTR. PT TO F/U W/ PCP TOMORROW ET RETURN TO ED IF SYMPTOMS CHANGE OR GET WORSE. PT VOICED UNDERSTANDING. NO QUESTIONS.
== END 2020-08-20 18:30 | disposition home or self-care (01) ==
LOC: EDUNIT# 16:20 → ER 16:22
DX: O26.891 Other specified pregnancy related conditions, first trimester (principal); R10.84 Generalized abdominal pain; Z80.3 Family history of malignant neoplasm of breast; Z82.49 Family history of ischemic heart disease and other diseases of the circulatory system; Z3A.00 Weeks of gestation of pregnancy not specified
CPT/HCPCS: 81000; 84703; 99283

== ENCOUNTER → 2022-08-16 | Outpatient (CLI) | payer BC ==
--- NOTE | 2022-08-16 14:18 | Diagnostic Imaging Report ---
Procedure: US OB SINGLE FETUS <14 WKS. Technique: Multiple real-time grayscale images were obtained over the gravid uterus in various projections. Date: August 16, 2022. Indication: 27-year-old female, assessment of gestational age. Comparison: May 12, 2019. Findings: There is a single living intrauterine with estimated gestational age based on today's crown-rump length measurements of 10 weeks and 2 days +/- 1 week. heart rate is measured at 158 bpm. There is no identified perigestational fluid collection. There is a yolk sac present. The uterus measures 13.4 x 5.1 x 7.6 cm in size. The right ovary measures 3.3 x 1.9 x 2.6 cm in size. The left ovary measures 2.9 x 1.4 x 2.0 cm in size. There is no concerning adnexal mass. There is no free pelvic fluid. Impression: 1. Single living intrauterine with estimated gestational age of 10 weeks and 2 days +/- 1 week. This is an estimated date of delivery by today's ultrasound of March 12, 2023. Dictated by: Dictated on workstation # [id number]
== END ==
LOC: RAD 09:44
PROVIDERS: ATTEND Family Medicine
DX: Z34.91 Encounter for supervision of normal pregnancy, unspecified, first trimester (principal); Z3A.10 10 weeks gestation of pregnancy
CPT/HCPCS: 76801

== ENCOUNTER → 2022-10-31 | Outpatient (CLI) | payer BC ==
--- NOTE | 2022-10-31 17:20 | Diagnostic Imaging Report ---
INDICATION: patient, survey. TECHNIQUE: Multiple real-time grayscale images were obtained over the gravid uterus. COMPARISON: 08/16/2022. FINDINGS: A single live intrauterine fetus is seen measuring at 20 weeks 4 days in size with sonographic EDC of 03/16/2023. Fetus is in breech presentation at this time. Amniotic fluid index is 14.6 cm. The gestational sac has a normal-appearing shape. Placenta is anterior with no evidence of previa. Distance from the placental tip to the internal os was 6.6 cm. heart rate is 143 bpm. Cervical length is 3.6 cm. survey showed normal-appearing kidneys and bladder. Normal-appearing stomach was seen. Intracranial ventricles appear normal. Four-chamber heart view appears normal. Views of the spine appear unremarkable. Three-vessel cord and cord insertion appear normal. There is no adnexal free fluid. Biometrical measurements are as follows: Biparietal 4.49 cm, age 19 weeks 5 days. Head circumference 18.29 cm, age 20 weeks 5 days. Abdominal circumference 15.41 cm, age 20 weeks 5 days. Femur length 3.43 cm, age 20 weeks 6 days. Sonographic estimate age: 20 weeks 4 days. Sonographic estimated date of delivery: 03/16/2023. Estimated Weight: 367 gm (+/- 54 gm). LMP percentile: 21%. heart rate: 142 beats per minute. number: 1 of 1. IMPRESSION: Single live intrauterine fetus measuring 20 weeks 4 days in size with normal interval growth compared to the prior study. There is no detectable sonographic abnormality. Dictated by: Dictated on workstation # [id number]
== END ==
LOC: RAD 14:59
PROVIDERS: ATTEND Family Medicine
DX: Z36.89 Encounter for other specified antenatal screening (principal); Z3A.20 20 weeks gestation of pregnancy
CPT/HCPCS: 76805

== ENCOUNTER 2023-02-24 17:35 | Outpatient (CLI) | payer BC ==
[~2023-02-24] VITALS: Ht 157.5 cm; Wt 67.4 kg
[2023-02-24 18:02] VITALS: BP 115/70
--- NOTE | 2023-02-25 08:19 | Physician Query-Final Dx ---
Clinic Account Progress/Dx Physician Query: Please give diagnosis Please include # weeks gestation Date of Service Feb 24, 2023 at 17:35 JESSI,SepFeb 25, 2023 08:19
== END 2023-02-24 19:00 | disposition home or self-care (01) ==
LOC: WSo 17:35 → LDRP 17:35 → WSo 19:00
PROVIDERS: ATTEND Family Medicine
DX: O41.93X0 Disorder of amniotic fluid and membranes, unspecified, third trimester, not applicable or unspecified (principal); Z3A.37 37 weeks gestation of pregnancy
CPT/HCPCS: 36415; 89060

== ENCOUNTER 2023-03-05 06:00 | Inpatient (IN) | payer BC ==
[~2023-03-05] VITALS: Ht 157.5 cm; Wt 68.0 kg
[2023-03-05] VITALS (34 sets, daily range): BP systolic 87–125; BP diastolic 50–75
[2023-03-05 06:57] LABS: BASOPHILS # (AUTO) 0.1 10^3/uL (0.0-0.1); BASOPHILS % (AUTO) 1 % (0-10); EOSINOPHILS # (AUTO) 0.2 10^3/uL (0.0-0.3); EOSINOPHILS % (AUTO) 3 % (0-10); HEMATOCRIT 36 % (35-52); HEMOGLOBIN 12.3 g/dL (11.5-16.0); LYMPHOCYTES # (AUTO) 1.9 10^3/uL (1.0-4.0); LYMPHOCYTES % (AUTO) 24 % (12-44); MEAN CORPUSCULAR HEMOGLOBIN 30 pg (25-34); MEAN CORPUSCULAR HGB CONC 35 g/dL (32-36); MEAN CORPUSCULAR VOLUME 87 fL (80-99); MEAN PLATELET VOLUME 11.1 fL (9.0-12.2); MONOCYTES # (AUTO) 0.7 10^3/uL (0.0-1.0); MONOCYTES % (AUTO) 8 % (0-12); NEUTROPHILS # (AUTO) 5.1 10^3/uL (1.8-7.8); NEUTROPHILS % (AUTO) 63 % (42-75); PLATELET COUNT 156 10^3/uL (130-400); WHITE BLOOD COUNT 8.1 10^3/uL (4.3-11.0)
[2023-03-05] MEDS ORDERED: PREN-102 PO (06:58)
--- NOTE | 2023-03-05 06:59 | History & Physical-OB ---
OB - Chief Complaint & HPI Date/Time Date of Admission: Date of Admission: Mar 05, 2023 at 06:01 Date seen by a Provider: Mar 05, 2023 Time Seen by a Provider: 06:25 Chief Complaint/History OB-Reason for Admission/Chief: Induction of Labor Hx : 3 Hx Para: 2 Expected Date of Delivery: Mar 12, 2023 Gestational Age in Weeks: 39 Gestational Age in Days: 0 Admission Nurse Assessment Rev: Yes History of Labs GBS negative Allergies and Home Medications Allergies Coded Allergies: No Known Drug Allergies (Unverified , 09/22/19) Patient Home Medication List Home Medication List Reviewed: Yes Vits #93/Iron Fum/FA ( Formula Tablet) 9 Mg Iron-267 Mcg Tablet, 1 EACH PO DAILY, (Reported) Entered as Reported by: Erna Vilchis on 03/05/23 0658 Last Action: New Order OB - History Hx of Present Care: Yes Ultrasounds: Normal mid trimester US Obstetrical Complications: None Medical Complications: None Patient Past Medical History no chronic medical problems Social History/Family History 2nd Hand Smoke Exposure: No OB - Admission Exam Physical Exam HEENT: Moist Membranes Heart: Rhythm Normal Lungs: Clear Abdomen: Gravid Cervical Dilatation: 2cm Effacement: 50% Membranes: Intact Accelerations: Accelerations Present Steamship Agent Variability: Average (6-25) Contractions on Admission: >10 Minutes Apart Intensity: Mild Schuler Scoring Tool (Modified) Dilation (cm): 1-2cm (1) Effacement (%): 31-51% (1) Descent/Station: -3 (0) Cervix Consistency: Medium(1) Cervix Position: Middle/Mid-Position (1) Add 1 point for: Each previous vaginal delivery (1) Schuler Score: 6 Labs Laboratory Tests Test 03/05/23 06:15 Range/Units OB - Assessment/Plan/Diagnosis Assessment Assessment: induction of labor (at term 39 weeks.) Admission Dx 1. IUP at term 39 weeks. Admission Status: Inpatient Order (span 2 midnights) Reason for Inpatient Admission: L&D Plan Plan: Induction Induction Method: AROM Other Plan -pitocin augmentation -epidural if desired NICOLE LUCAS MD Mar 05, 2023 06:59
[2023-03-05] MEDS ORDERED: MINERAL OIL 30 ML UDC TOP PRN (07:00)
[2023-03-05] MEDS ORDERED: D5 LR IV SOLUTION 1,000 ML IV SCH (07:00)
[2023-03-05] MEDS ORDERED: MEPIVACAINE (CARBOCAINE) 2% 50 ML VIAL INJ PRN (07:00)
[2023-03-05] MEDS ORDERED: OXYTOCIN PRE-MIX DRIP 500 ML IV SCH ×3 (07:00→14:00)
--- NOTE | 2023-03-05 13:56 | OB Labor & Delivery Record ---
L&D History Date of Service Date of Service: Mar 05, 2023 History Expected Date of Delivery: Mar 12, 2023 Gestational Age in Weeks: 39 Hx : 3 Hx Para: 3 Complications Events: Routine care Operative Indications (Cesarea: N/A-Vaginal Delivery Intrapartal Events: None L&D Stage1 Stage One Onset of Labor - Date: Mar 05, 2023 Onset of Labor - Time: 06:30 Monitors and Tracing Monitor Mode: Internal Heart Rate: 120 Monitor Accelerations: Uniform Station: -1 Bpo Specialist Variability: Average (6-10) Short Term Variability: Present Presentation: Vertex Vital Signs VS - Last 72 Hours, by Label 03/05/23 03/05/23 03/05/23 03/05/23 07:02 07:30 07:45 08:00 Temp 36.6 36.4 Pulse 101 86 81 93 Resp 18 18 18 18 B/P (MAP) 109/72 (84) 100/63 (75) 95/55 (68) Pulse Ox 99 O2 Delivery Room Air Room Air Room Air Room Air 03/05/23 03/05/23 03/05/23 03/05/23 08:15 08:30 08:45 09:00 Temp 36.4 Pulse 97 87 82 84 Resp 18 18 18 18 B/P (MAP) 100/58 (72) 96/60 (72) 99/60 (73) 88/50 (63) O2 Delivery Room Air Room Air Room Air Room Air 03/05/23 03/05/23 03/05/23 03/05/23 09:15 09:30 09:45 10:15 Temp 36.5 Pulse 81 81 88 79 Resp 18 18 18 18 B/P (MAP) 87/50 (62) 89/53 (65) 91/52 (65) 97/58 (71) Pulse Ox 100 O2 Delivery Room Air Room Air Room Air Room Air 03/05/23 03/05/23 03/05/23 03/05/23 10:30 10:45 11:00 11:15 Temp 36.8 Pulse 94 85 79 83 Resp 18 18 18 18 B/P (MAP) 111/69 (83) 106/67 (80) 101/59 (73) 104/58 (73) O2 Delivery Room Air Room Air Room Air Room Air 03/05/23 03/05/23 03/05/23 03/05/23 11:30 11:45 12:00 12:15 Temp 36.5 Pulse 110 110 85 90 Resp 18 18 18 18 B/P (MAP) 106/64 (78) 105/69 (81) 97/51 (66) 93/50 (64) O2 Delivery Room Air Room Air Room Air Room Air 03/05/23 03/05/23 12:30 12:45 Temp 36.8 Pulse 98 118 Resp 18 18 B/P (MAP) 111/72 (85) 114/75 (88) O2 Delivery Room Air Room Air Signs of Distress by FHT Signs of Distress no Rupture of Membranes Spontaneous Ruture of Membrane: No Amniotic Membrane Rupture Time: 0630 Amniotic Membrane Fluid Desc.: Clear Amniotic Fluid Membrane Tests: Nitrazine Positive Vaginal Bleeding Description: None L&D Stage2 Stage Two Stage II Date: Mar 05, 2023 Stage II Time: 13:24 Monitors and Tracing Monitor Mode: Internal Heart Rate: 120 Monitor Accelerations: Uniform Monitor Decelerations: Variable Bpo Specialist Variability: Average (6-10) Short Term Variability: Present Position: Left Occiput Anterior Presentation: Vertex Signs of Distress by FHT Signs of Distress no Cord Descript/Complications Cord Vessel Description: 3 Vessels Delivery Type Infant Delivery Method: Spontaneous Vaginal Anterior Shoulder: Left Episiotomy/Perineal Laceration Laceraction(s)/Extensions: No Episiotomy Description: 1st degree Sutures Used: Vicryl Condition of Delivery 1 minute Comment: 8 5 minute Comment: 9 Condition of Infant Condition of : Living Exam: No Observed Abnormalities Resuscitation Resuscitation: N/A - Spontaneous Resp L&D Stage3 Stage Three Stage III Date: Mar 05, 2023 Stage III Time: 13:30 Pictocin Pitocin Administration mu/min: 20 Pitocin ml/hr: 20 Pitocin Administration Comment: Pitocin increased per protocol Placenta Delivery Placenta Delivery: Spontaneous Delivery Summary Summary Estimated blood loss (mL): 150 Condition of Delivery Examined: Cervix Examined Post Hemorrhage: No Intervention Required none NICOLE LUCAS MD Mar 05, 2023 13:56
[2023-03-05] MEDS ORDERED: NALOXONE 0.4 MG/ML 1 ML (NARCAN) VIAL IV PRN (14:00)
[2023-03-05] MEDS ORDERED: CATHETER FLUSH 10 ML SYR IV SCH (14:00)
[2023-03-05] MEDS ORDERED: BENZOCAINE/MENTHOL (DERMOPLAST) 56 ML CAN TP PRN (14:00)
[2023-03-05] MEDS ORDERED: HYDROcodone/APAP 5 MG/325 MG (LORTAB) TAB PO PRN (14:00)
[2023-03-05] MEDS ORDERED: TETANUS,DIPTH,PERTUSS P/F (BOOSTRIX) 0.5 ML VIAL IM ONE (14:00)
[2023-03-05] MEDS ORDERED: WITCH HAZEL(TUCKS) 40 EA JAR TOP PRN (14:00)
[2023-03-05] MEDS ORDERED: MEASLES,MUMPS,RUBELLA 1 EA INJ SQ ONE (14:00)
[2023-03-05] MEDS: ACETAMINOPHEN 500 MG TAB (TYLENOL) PO SCH ×2 (15:16→20:00)
[2023-03-05] MEDS: IBUPROFEN 600 MG (MOTRIN) TAB PO SCH ×2 (15:16→20:49)
[2023-03-05] MEDS: DOCUSATE SODIUM 100 MG (COLACE) CAP PO SCH (20:49)
[2023-03-06 01:00] VITALS: BP 106/60
[2023-03-06] MEDS: ACETAMINOPHEN 500 MG TAB (TYLENOL) PO SCH ×3 (02:00→14:00)
[2023-03-06] MEDS: IBUPROFEN 600 MG (MOTRIN) TAB PO SCH ×3 (03:09→14:00)
[2023-03-06 05:15] VITALS: BP 96/58
[2023-03-06 05:55] LABS: BASOPHILS # (AUTO) 0.1 10^3/uL (0.0-0.1); BASOPHILS % (AUTO) 1 % (0-10); EOSINOPHILS # (AUTO) 0.2 10^3/uL (0.0-0.3); EOSINOPHILS % (AUTO) 2 % (0-10); HEMATOCRIT 34 % (35-52); HEMOGLOBIN 11.6 g/dL (11.5-16.0); LYMPHOCYTES # (AUTO) 2.2 10^3/uL (1.0-4.0); LYMPHOCYTES % (AUTO) 22 % (12-44); MEAN CORPUSCULAR HEMOGLOBIN 30 pg (25-34); MEAN CORPUSCULAR HGB CONC 35 g/dL (32-36); MEAN CORPUSCULAR VOLUME 87 fL (80-99); MEAN PLATELET VOLUME 11.1 fL (9.0-12.2); MONOCYTES # (AUTO) 0.8 10^3/uL (0.0-1.0); MONOCYTES % (AUTO) 8 % (0-12); NEUTROPHILS # (AUTO) 6.7 10^3/uL (1.8-7.8); NEUTROPHILS % (AUTO) 67 % (42-75); PLATELET COUNT 179 10^3/uL (130-400)
--- NOTE | 2023-03-06 07:22 | Discharge Summary ---
Diagnosis/Chief Complaint Date of Admission Mar 05, 2023 at 06:01 Date of Discharge March 06, 2023 Discharge Date: Mar 06, 2023 Admission Diagnosis Admission Diagnosis 1. Intrauterine at term 39 weeks Discharge Diagnosis 1. Intrauterine at term 39 weeks Reason Hospital Visit 28-year-old 3 now term 3 living 3 who presented to labor and delivery during the morning of March 05, 2023 for induction of labor at 39 weeks gestation. Her GBS status was noted to be negative. Her EDC was noted to be March 12, 2023. Her care was essentially unremarkable. Discharge Summary-OBS Procedures 1. Spontaneous vaginal delivery 2. Repair of minor perineal laceration Discharge Physical Examination Allergies: Coded Allergies: No Known Drug Allergies (Unverified , 09/22/19) Vitals & I&Os Vital Signs Date Time Temp Pulse Resp B/P (MAP) Pulse Ox O2 Delivery O2 Flow Rate FiO2 03/06/23 05:15 36.5 81 18 96/58 (71) 99 Room Air General Appearance: No Acute Distress Respiratory: Clear to Auscultation Cardiovascular: Regular Rate Abdominal: Soft (With uterus firm) Neuro: Normal Speech Psych/Mental Status: Mental Status NL Hospital Course patient was admitted in the morning of March 05, 2023 and noted to be dilated to 2 cm. She underwent amniotomy with placement of scalp electrode. Fluid was noted to be clear. She did not desire to have epidural. She required Pitocin augmentation. Ultimately she went on to deliver a term viable male with Apgars of 8 at 1 minute and 9 at 5 minutes. See labor and delivery note for full details. Following delivery she underwent routine post care orders. She had no complications during the remainder of hospital stay. She was noted to have a hemoglobin of 11 point 6 in the morning of March 06 compared to admission of 12.3. She was ambulatory and without any complaints of chest pain or leg pain. Patient was felt ready for dismissal during the afternoon of March 06, 2023 and to follow-up with myself in 6 weeks. Pending Labs Laboratory Tests 03/06/23 05:32: White Blood Count 10.0, Red Blood Count 3.87, Hemoglobin 11.6, Hematocrit 34, Mean Corpuscular Volume 87, Mean Corpuscular Hemoglobin 30, Mean Corpuscular Hemoglobin Concent 35, Red Cell Distribution Width 12.6, Platelet Count 179, Mean Platelet Volume 11.1, Immature Granulocyte % (Auto) 1, Neutrophils (%) (Auto) 67, Lymphocytes (%) (Auto) 22, Monocytes (%) (Auto) 8, Eosinophils (%) (Auto) 2, Basophils (%) (Auto) 1, Neutrophils # (Auto) 6.7, Lymphocytes # (Auto) 2.2, Monocytes # (Auto) 0.8, Eosinophils # (Auto) 0.2, Basophils # (Auto) 0.1, Immature Granulocyte # (Auto) 0.1 Discharge Instructions to patient/family Please see electronic discharge instructions given to patient. Discharge Medications Reviewed and agree with Discharge Medication list on patient's Discharge Instruction sheet NICOLE LUCAS MD Mar 06, 2023 07:22
--- NOTE | 2023-03-06 07:23 | Discharge Inst-Women's Service ---
Discharge Inst-Women's Serv Depart Medication/Instructions New, Converted or Re-Newed RX: Other Instructions May take ibuprofen [id number] 200 mg, 2 or 3 every 6 hours as needed for cramps. Problems Reviewed?: Yes Consults/Follow Up Additional Follow Up: Yes (Dr. Lucas in 6 weeks) Activity Driving Instructions: You May Drive Nothing Inside Vagina: No Baker (For 6 weeks) Diet Discharge Diet: Regular Diet Return to The Hospital For: As below Symptoms to Report to : Bleeding Excessive, Fever Over 101 Degrees F, Vaginal Discharge Foul For Any Problems or Questions: Contact Your Physician NICOLE LUCAS MD Mar 06, 2023 07:23
[2023-03-06 07:30] VITALS: BP 104/68
[2023-03-06] MEDS: DOCUSATE SODIUM 100 MG (COLACE) CAP PO SCH (09:38)
[2023-03-06 12:29] VITALS: BP 111/92
== END 2023-03-06 15:40 | disposition home or self-care (01) | DRG 807 ==
LOC: LDRP 06:01
PROVIDERS: ADMIT Family Medicine; ATTEND Family Medicine
PROC: 10E0XZZ Delivery of Products of Conception, External Approach (ICD-10-PCS; principal; 2023-03-05)
PROC: 0HQ9XZZ Repair Perineum Skin, External Approach (ICD-10-PCS; 2023-03-05)
PROC: 10907ZC Drainage of Amniotic Fluid, Therapeutic from Products of Conception, Via Natural or Artificial Opening (ICD-10-PCS; 2023-03-05)
DX: O70.0 First degree perineal laceration during delivery (principal); Z37.0 Single live birth; Z3A.39 39 weeks gestation of pregnancy
CPT/HCPCS: 36415; 85025; 86780; 86850; 86900; 86901